=== PATIENT | male | born 1980 | race Two or more races ===

== ENCOUNTER 2018-01-03 23:00 | Emergency (ER) | payer OTHER ==
[~2018-01-03] VITALS: Ht 177.8 cm; Wt 104.3 kg
[~2018-01-03 23:00] MED LIST: ATIVAN1 MG ORAL; NKM
[2018-01-03] MEDS: Norco 5mg/325mg tab ORAL ONE (23:41)
--- NOTE | 2018-01-03 23:45 | Emergency Room Report ---
History of Present Illness General Chief Complaint: Lower Extremity Injury Source: Patient Present Illness HPI 37-year-old male presenting with left calf pain. 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 Complaining of pain. No ankle pain. Able to flex foot without issue. No other complaints Allergies: Coded Allergies: No Known Allergies (Unverified , 06/29/16) Patient History Past Medical History: see triage record Past Surgical History: none Pertinent Family History: none Reviewed Nursing Documentation: PMH: Agreed; PSxH: Agreed Nursing Documentation-PMH Past Medical History: No Stated History Review of Systems All Other Systems: negative except mentioned in HPI Physical Exam Vital Signs Date Time Temp Pulse Resp B/P (MAP) Pulse Ox O2 Delivery O2 Flow Rate FiO2 01/03/18 23:15 98.0 80 18 142/78 98 Room Air 98.1 Sp02 EP Interpretation: reviewed, normal General Appearance: alert, GCS 15, non-toxic, moderate distress Head: normocephalic, atraumatic Eyes: bilateral eye normal inspection, bilateral eye PERRL, bilateral eye EOMI ENT: normal ENT inspection, normal pharynx, normal voice, moist mucus membranes Neck: normal inspection, full range of motion, supple Respiratory: normal inspection, lungs clear, normal breath sounds, no respiratory distress, no wheezing, speaking full sentences, chest symmetrical Cardiovascular #1: normal inspection, regular rate, rhythm, normal capillary refill Cardiovascular #2: 2+ radial (R), 2+ radial (L) Gastrointestinal: normal inspection, non tender, soft, non-distended, no guarding Genitourinary: no CVA tenderness Musculoskeletal: other - Left lower leg, gastro-anemia's muscle, tense and tender to palpation, ecchymosis noted to the ankle, Garcia test is negative, patient with no Achilles rupture, no gross bony deformities. Distal pulses are intact Neurologic: normal inspection, alert, oriented x3, responsive, motor strength/ tone normal, sensory intact, normal gait, speech normal Psychiatric: normal inspection, judgement/insight normal, memory normal Skin: normal inspection, normal color, no rash, warm/dry, well hydrated, normal turgor Medical Decision Making Diagnostic Impression: Primary Impression: Gastrocnemius muscle tear ER Course 37-year-old male with left lower extremity pain, after hearing a pop last week DDX: The gastrocnemius tear, not involving Achilles tendon. Versus DVT Plan: Pain control and ultrasound ER course: Patient has remained stable during ED stay. Disposition: Patient is to be discharged to home. Told to get a compression sleeve and to follow up with orthopedic in one week, also told to ice Patient is instructed to follow up with their primary care doctor within 5 days. Please note that this Emergency Department Report was dictated using [employer] cashier technology software, occasionally this can lead to erroneous entry secondary to interpretation by the dictation equipment CT/MRI/US Diagnostic Results CT/MRI/US Diagnostic Results : Imaging Test Ordered: VENOUS DUPLEX Impression NEG Last Vital Signs Date Time Temp Pulse Resp B/P (MAP) Pulse Ox O2 Delivery O2 Flow Rate FiO2 01/03/18 23:15 98.0 80 18 142/78 98 Room Air 98.1 Disposition: HOME, SELF-CARE Condition: Improved Scripts Hydrocodone Bit/Acetaminophen 5-325* (NORCO 5-325*) 1 Each Tablet 1 TAB ORAL Q6H PRN for For Pain, #20 TAB 0 Refills Prov: Luis Fields M.D. 01/04/18 Patient Instructions: Muscle Strain, [id number] Luis Fields M.D. January 03, 2018 23:45
[2018-01-04] MEDS ORDERED: NORCO 5-325 TA1 EACH ORAL (00:41)
[2018-01-04 01:15] VITALS: BP 142/78
== END 2018-01-04 01:16 | disposition home or self-care (01) ==
LOC: EMR 23:35
DX: S86.812A Strain of other muscle(s) and tendon(s) at lower leg level, left leg, initial encounter (principal); Y93.02 Activity, running; Y92.9 Unspecified place or not applicable; R60.0 Localized edema
CPT/HCPCS: 93971; 99284

== ENCOUNTER 2018-10-06 07:46 | Emergency (ER) | payer OTHER ==
[~2018-10-06] VITALS: Ht 175.3 cm; Wt 104.3 kg
[~2018-10-06 07:46] MED LIST changes: +NORCO 5-325 TA1 EACH ORAL
[2018-10-06] MEDS ORDERED: Ketorolac 60mg Inj IM ONE (08:00)
[2018-10-06] MEDS ORDERED: Methocarbamol 750mg tab ORAL ONE (08:00)
[2018-10-06 08:02] VITALS: BP 137/91
[2018-10-06] MEDS ORDERED: ROBAXIN-750750 MG PO (08:07)
[2018-10-06] MEDS ORDERED: IBUPROFEN600 MG ORAL (08:07)
--- NOTE | 2018-10-06 08:10 | NUR ---
ED Nurse Note:pt. came with lower back pain no injury reported pain meds given
[2018-10-06 08:21] VITALS: BP 137/91
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
--- NOTE | 2018-10-06 08:23 | NUR ---
Ed Nurse Note: pt is cleared to be DC per ER provider, pt discharge and aftercare instruction provided w/ prescription, pt education done via discussion and handout, pt advised to follow up with pcp or return to ED if sx worsen or new sx develop, pt verbalized understanding and agrees with plan, pt vss, ambulatory w/ steady gait, all belongiongs left w/ pt, wristband removed.
== END 2018-10-06 08:30 | disposition home or self-care (01) ==
LOC: EMR 08:00
DX: M54.5 Low back pain (principal)
CPT/HCPCS: 96372; 99283

== ENCOUNTER 2019-02-27 21:47 | Emergency (ER) | payer OTHER ==
[~2019-02-27] VITALS: Ht 177.8 cm; Wt 104.3 kg
[~2019-02-27 21:47] MED LIST changes: +IBUPROFEN600 MG ORAL; +ROBAXIN-750750 MG PO
--- NOTE | 2019-02-27 22:00 | NUR ---
ED Nurse Note: Recieved pt from home with c/o swelling and severre 10/10 pain to left great toe x 2 days, pt states was [place] tight shoes at beach this weekend and "boil" formed, pt denies injury, no open wounds noted, very mild swelling, no redness, pt denies any other complaints or discomforts, pt ambulating well.
--- NOTE | 2019-02-27 22:44 | Emergency Room Report ---
History of Present Illness General Chief Complaint: Pain Source: Patient Present Illness HPI 38-year-old male presents with right toe pain, that started 4 days ago, he thinks he is having an ingrown hair, there is a boil on the top of his right great toe, he endorses a sharp pain aggravated with touch alleviated by rest, he denies any fevers or chills, patient presents for evaluation Allergies: Coded Allergies: No Known Allergies (Unverified , 06/29/16) Patient History Past Medical History: see triage record Reviewed Nursing Documentation: PMH: Agreed; PSxH: Agreed Nursing Documentation-PMH Past Medical History: No Stated History Review of Systems All Other Systems: negative except mentioned in HPI Physical Exam Vital Signs Date Time Temp Pulse Resp B/P (MAP) Pulse Ox O2 Delivery O2 Flow Rate FiO2 02/27/19 21:50 98.1 80 18 129/76 (93) 95 Room Air Sp02 EP Interpretation: reviewed, normal General Appearance: well appearing, no apparent distress, alert Head: normocephalic, atraumatic Eyes: bilateral eye PERRL, bilateral eye EOMI ENT: uvula midline, moist mucus membranes Neck: supple, thyroid normal, supple/symm/no masses Respiratory: lungs clear, no respiratory distress, no retraction, no accessory muscle use Cardiovascular #1: normal peripheral pulses, regular rate, rhythm, no edema, no gallop, no murmur Gastrointestinal: non tender, soft, no guarding, no rebound Musculoskeletal: other - Right great toe: A small 0.5 cm indurated lesion around where the hair grows Neurologic: alert, oriented x3 Psychiatric: mood/affect normal Skin: no rash, warm/dry Medical Decision Making Diagnostic Impression: Primary Impression: Folliculitis ER Course 38-year-old male presents with most likely folliculitis, patient does not want me to express the pus, patient wants to trial antibiotics, patient counseled, x- ray negative, on the differential includes cellulitis, abscess, folliculitis Precautions discussed Other X-Ray Diagnostic Results Other X-Ray Diagnostic Results : X-Ray ordered: Right Foot complete # of Views/Limited Vs Complete: 3 View Indication: Pain EP Interpretation: Yes Interpretation: no dislocation, no soft tissue swelling, no fractures, nonspecific bowel gas Impression: No acute disease Electronically Signed by: James Mccabe MD Last Vital Signs Date Time Temp Pulse Resp B/P (MAP) Pulse Ox O2 Delivery O2 Flow Rate FiO2 02/27/19 21:50 98.1 80 18 129/76 (93) 95 Room Air Disposition: HOME, SELF-CARE Condition: Stable Scripts Trimethoprim/Sulfamethoxazole 160/800* (BACTRIM DS TABLET*) 1 Each Tablet 1 TAB ORAL Q12H, #14 TAB 0 Refills Prov: James Mccabe MD 02/27/19 Referrals: [facility] Additional Instructions: The patient was provided with discharge instructions, notified to follow-up with a primary care doctor and or specialist in the next 24-48 hours, and to return to the ED if they have worsening of their symptoms. Please note that this report is being documented using [employer] technology. This can lead to erroneous entry secondary to incorrect interpretation by the dictating instrument. James Mccabe MD Feb 27, 2019 22:44
[2019-02-27] MEDS ORDERED: Bacitracin Oint UD TOPIC ONE (22:45)
[2019-02-27] MEDS ORDERED: BACTRIM DS TAB1 EAC1 ORAL (22:57)
[2019-02-27 23:10] VITALS: BP 136/84
[2019-02-27] MEDS ORDERED: Bactrim-DS 1 tab ORAL ONE (23:15)
[2019-02-27 23:25] VITALS: BP 136/84
--- NOTE | 2019-02-27 23:25 | NUR ---
ER DISCHARGE NOTE: Patient is cleared to be discharged per ERMD, pt is aox4, on room air, with stable vital signs. pt was given dc and prescription instructions, pt was able to verbalize understanding, pt id band removed without complications. pt is able to ambulate with steady gait. pt took all belongings.
--- NOTE | 2019-02-28 13:18 | Diagnostic Imaging Report ---
Indication: Foot Pain Comparison: None Findings: 3 views of the right foot were obtained. No acute fractures, malalignment, erosions or periostitis are identified. Impression: No acute findings.
== END 2019-02-28 02:06 | disposition home or self-care (01) ==
LOC: EMR 22:20
DX: L73.9 Follicular disorder, unspecified (principal)
CPT/HCPCS: 99283

== ENCOUNTER 2019-06-04 18:02 | Emergency (ER) | payer OTHER ==
[~2019-06-04] VITALS: Ht 177.8 cm; Wt 113.4 kg
[~2019-06-04 18:02] MED LIST changes: +BACTRIM DS TAB1 EAC1 ORAL
[2019-06-04 18:15] VITALS: BP 161/90
--- NOTE | 2019-06-04 18:15 | NUR ---
ED Nurse Note: pt walked in to Ed due to abscess on left thigh for 4 days. no discharge noted. redness noted with local fever. AAO x4. respirations even and non-labored noted. will wait for the further order.
--- NOTE | 2019-06-04 19:07 | NUR ---
HAND-OFF: Report given to MARTHA Herbert.
--- NOTE | 2019-06-04 19:09 | Emergency Room Report ---
History of Present Illness General Chief Complaint: Skin Rash/Abscess Source: Patient Present Illness HPI 38-year-old male with no significant past medical history here complaining of a 10 out of 10 pain over the abscess that has been developed on the left posterior thigh x3 days. 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 Patient reports that he has had abscess formation in the past and he has always been successfully able to drain it himself. Rating the pain 10 out of 10 without radiation, denies tingling and numbness. Denies fever and chills, chest pain, shortness of breath, palpitation, abdominal pain, nausea vomiting. Has not taken medication for symptom relief. Moderately erythematous abscess noted on left posterior thigh. Patient is up-to-date with tetanus shot. Allergies: Coded Allergies: No Known Allergies (Unverified , 06/29/16) Patient History Past Medical History: see triage record Past Surgical History: unable to obtain Pertinent Family History: none Immunizations: UTD Reviewed Nursing Documentation: PMH: Agreed; PSxH: Agreed Nursing Documentation-PMH Past Medical History: No Stated History Review of Systems All Other Systems: negative except mentioned in HPI Physical Exam Vital Signs Date Time Temp Pulse Resp B/P (MAP) Pulse Ox O2 Delivery O2 Flow Rate FiO2 06/04/19 18:12 98.2 99 18 161/90 (113) 98 Room Air Sp02 EP Interpretation: reviewed, normal General Appearance: no apparent distress, alert, GCS 15, non-toxic Head: normocephalic, atraumatic Eyes: bilateral eye normal inspection, bilateral eye PERRL ENT: hearing grossly normal, normal pharynx, no angioedema, normal voice Neck: full range of motion, supple, supple/symm/no masses Respiratory: chest non-tender, lungs clear, normal breath sounds, no rhonchi, no respiratory distress, no wheezing, speaking full sentences Cardiovascular #1: regular rate, rhythm, no edema, no murmur Gastrointestinal: normal bowel sounds, non tender, soft, non-distended, no guarding, no rebound Rectal: deferred Genitourinary: normal inspection, no CVA tenderness Musculoskeletal: back normal, digits/nails normal, gait/station normal, normal range of motion, non-tender, no calf tenderness Neurologic: normal inspection, alert, oriented x3 Psychiatric: judgement/insight normal, memory normal, mood/affect normal, no suicidal/homicidal ideation Skin: other - Abscess left posterior thigh Lymphatic: no adenopathy Procedures Incision and Drainage Incision and Drainage : Consent: Verbal Site: left posterior thigh Blade Size: 11 I & D Procedure: betadine prep Wound Location: lower extremity - left posterior thigh Wound's Depth, Shape: superficial Wound Length (cm): 1 Wound Explored: clean Anesthesia: Lidocaine w/ Epi Volume Anesthetic (ccs): 10 Splint Applied?: No Sling Applied?: No Patient Tolerated: Well Complications: None Medical Decision Making PA Attestation All diagnoses and treatment plans were reviewed and discussed with my supervising physician Dr. Wagner Diagnostic Impression: Primary Impression: Abscess of left thigh ER Course 38-year-old male with no significant past medical history here complaining of a 10 out of 10 pain over the abscess that has been developed on the left posterior thigh x3 days. 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 Patient reports that he has had abscess formation in the past and he has always been successfully able to drain it himself. Rating the pain 10 out of 10 without radiation, denies tingling and numbness. Denies fever and chills, chest pain, shortness of breath, palpitation, abdominal pain, nausea vomiting. Has not taken medication for symptom relief. Moderately erythematous abscess noted on left posterior thigh. Patient is up-to-date with tetanus shot. Ddx considered but are not limited to : Cellulitis, superficial infection, abscess Vital signs: are WNL, pt. is afebrile H&PE are most consistent with: Abscess of left posterior thigh ORDERS: Keflex, Bactrim, ibuprofen ED INTERVENTIONS: Incision and drainage, wound clean and dressed, Bactrim, Keflex, ibuprofen DISCHARGE: At this time pt. is stable for d/c to home. Will provide printed patient care instructions, and any necessary prescriptions. Care plan and follow up instructions have been discussed with the patient prior to discharge. Patient to follow-up with primary care provider or return to emergency room in 24 to 48 hours for wound check. If worsening symptoms, fever and chills return sooner. Last Vital Signs Date Time Temp Pulse Resp B/P (MAP) Pulse Ox O2 Delivery O2 Flow Rate FiO2 06/04/19 18:15 98.2 99 18 161/90 98 Room Air Disposition: HOME, SELF-CARE Condition: Stable Scripts Ibuprofen (Ibu) 800 Mg Tablet 800 MG PO TID, #21 TAB Prov: Yakov Hopkins 06/04/19 Cephalexin* (KEFLEX*) 500 Mg Capsule 500 MG ORAL EVERY 6 HOURS for 7 Days, #28 CAP Prov: Yakov Hopkins 06/04/19 Trimethoprim/Sulfamethoxazole 160/800* (BACTRIM DS TABLET*) 1 Each Tablet 1 TAB ORAL TWICE A DAY for 7 Days, #14 TAB Prov: Yakov Hopkins 06/04/19 Patient Instructions: Abscess Additional Instructions: Take medication as directed, follow-up with your primary care provider you need to have a wound check in 24 to 48 hours no more than welcome to return to the emergency room for wound check. If worsening symptoms such as fever and chills return to the emergency room sooner. Yakov Hopkins Jun 04, 2019 19:08
[2019-06-04] MEDS ORDERED: IBU800 MG PO (19:10)
[2019-06-04] MEDS ORDERED: BACTRIM DS TAB1 EAC1 ORAL (19:10)
[2019-06-04] MEDS ORDERED: CEPHALEXIN500 MG ORAL (19:10)
[2019-06-04] MEDS ORDERED: Cephalexin 500mg cap ORAL ONE (19:15)
[2019-06-04] MEDS ORDERED: Bactrim-DS 1 tab ORAL ONE (19:15)
[2019-06-04 19:28] VITALS: BP 161/90
--- NOTE | 2019-06-04 19:28 | NUR ---
ED Nurse Note: Pt cleared by ERMD for discharge. DC instructions/prescription was given and explained to pt and verbalized understanding of teachings. All medical deviecs such as ID band removed. Pt is AAO x4, ambulatory and left with all personal belongings.
== END 2019-06-04 19:28 | disposition home or self-care (01) ==
LOC: EMR 18:15
DX: L02.416 Cutaneous abscess of left lower limb (principal)
CPT/HCPCS: 10060; Z7502; 99283

== ENCOUNTER 2019-07-15 15:14 | Emergency (ER) | payer OTHER ==
[~2019-07-15] VITALS: Ht 177.8 cm; Wt 104.3 kg
[~2019-07-15 15:14] MED LIST changes: +CEPHALEXIN500 MG ORAL; +IBU800 MG PO
[2019-07-15] MEDS ORDERED: NKM (15:29)
--- NOTE | 2019-07-15 15:40 | NUR ---
ED Nurse Note: Patient walked into ED from home c/o left sided chest pain 1 hour prior to arrival to ED radiating to his lower back, reports tingling sensation and numbeness on the left hand. Patient denies N/V/changes in vision.
--- NOTE | 2019-07-15 15:53 | NUR ---
ED Nurse Note: xray at bedside
[2019-07-15] MEDS ORDERED: Aspirin Baby 81mg ORAL ONE (16:00)
--- NOTE | 2019-07-15 16:18 | NUR ---
ED Nurse Note: pt care assummed pt placed on telemetry and vs monitoring. pt amb steady gait without dyspnea or increased cp. pt denies cp at this time but does relate continued numbness/tingling sensation to fingers bilaterally. lungs cta. abd soft nt. denies n/v at this time. pt denies drug use but states does have recent etoh use.
[2019-07-15 16:23] VITALS: BP 147/86
[2019-07-15 16:23] LABS: BASOPHILS % (AUTO) 2.8 % (0.0-2.0); HEMATOCRIT 48.9 % (42.0-52.0); HEMOGLOBIN 16.4 G/DL (14.2-18.0); LYMPHOCYTES % (AUTO) 34.1 % (20.0-45.0); MEAN CORPUSCULAR VOLUME 81 FL (80-99); MONOCYTES % (AUTO) 6.1 % (1.0-10.0); PLATELET COUNT 262 K/UL (150-450); RED CELL DISTRIBUTION WIDTH 11.1 % (11.6-14.8); WHITE BLOOD COUNT 6.8 K/UL (4.8-10.8)
--- NOTE | 2019-07-15 16:29 | NUR ---
ED Nurse Note: pt relates no cp now but does have numbness/tingling sensation to left arm/fingers that has been present x 2 hours.
[2019-07-15 16:38] LABS: INR 0.9 (0.9-1.1)
[2019-07-15 16:39] LABS: ANION GAP 11 mmol/L (5-15); BLOOD UREA NITROGEN 15 mg/dL (7-18); CALCIUM 9.9 MG/DL (8.5-10.1); CARBON DIOXIDE 29 MMOL/L (21-32); CHLORIDE 102 MMOL/L (98-107); POTASSIUM 4.3 MMOL/L (3.5-5.1); SODIUM 142 MMOL/L (136-145)
[2019-07-15 16:49] LABS: ALANINE AMINOTRANSFERASE 52 U/L (12-78); ALBUMIN 4.3 G/DL (3.4-5.0); ALKALINE PHOSPHATASE 54 U/L (46-116); ASPARTATE AMINO TRANSFERASE 30 U/L (15-37); BILIRUBIN,TOTAL 0.4 MG/DL (0.2-1.0)
--- NOTE | 2019-07-15 17:16 | Diagnostic Imaging Report ---
Indication: Chest pain Technique: One view of the chest Comparison: none Findings: Lungs and pleural spaces are clear. Heart size is normal. No significant interim change Impression: No acute process
[2019-07-15] MEDS ORDERED: Omnipaue 350mg/ml 100ml vial INJ PRN (17:30)
--- NOTE | 2019-07-15 18:18 | Diagnostic Imaging Report ---
CLINICAL INDICATION:Left-sided chest pain, left arm numbness, suspected aortic dissection TECHNIQUE: IV administration nonionic contrast. Spiral acquisitions obtained through the chest, abdomen, and pelvis. Multiplanar and 3-D reconstructions were generated. Total dose length product 1513 mGycm. CTDIvol(s) 142 mGy. Radiation dose was minimized using automated exposure control COMPARISON: none FINDINGS Vascular: No evidence of thoracic aortic aneurysm or dissection demonstrated. Normal branching anatomy and caliber of the great neck vessels. No evidence of abdominal aortic aneurysm or dissection. Patent nonstenotic celiac axis and proximal branches, superior mesenteric artery and proximal branches, single bilateral renal arteries. Patent nonstenotic inferior mesenteric artery. A single small plaque is seen in the right common iliac artery; iliac arteries are otherwise patent without evidence of significant stenosis. Exam protocols not tailored for exclusion of pulmonary embolus, but the pulmonary arteries are well-opacified and there is no evidence of pulmonary embolus demonstrated. The heart demonstrates possible left ventricular wall thickening. Chest: There is some image degradation due to motion artifact. The lungs and pleural spaces are clear. No infiltrates, effusions, masses, or nodules are demonstrated. No pericardial effusion. No mediastinal or hilar mass or adenopathy. The included thyroid is unremarkable. No axillary or chest wall mass or adenopathy. The bones are unremarkable. Abdomen pelvis: The liver, gallbladder, bile ducts, pancreas, spleen, adrenals, kidneys are all unremarkable. No retroperitoneal or mesenteric mass or adenopathy. No pelvic mass or adenopathy. Slightly prominent prostate noted. The appendix is normal. No evidence of colonic diverticulosis or diverticulitis demonstrated. No small bowel distention. There is a small fat-containing umbilical hernia. No free or loculated intraperitoneal gas or fluid. The esophagus, stomach, duodenum are unremarkable. IMPRESSION: No evidence of thoracic or abdominal aortic aneurysm or dissection or any other acute pathology. Possible mild left ventricular muscular hypertrophy Slightly prominent prostate Incidental findings as noted This agrees with the preliminary interpretation provided overnight by [facility] service. The CT scanner at [facility] is accredited by the [employer] and the scans are performed using protocols designed to limit radiation exposure to as low as reasonably achievable to attain images of sufficient resolution adequate for diagnostic evaluation.
--- NOTE | 2019-07-15 18:40 | Emergency Room Report ---
History of Present Illness General Chief Complaint: Chest Pain Source: Patient Present Illness HPI 38-year-old male with no significant past medical history here complaining of sudden onset of chest pain, and numbness in the left arm. Denies headache and dizziness at this time, rating her pain 10 out of 10, intermittent, squeezing. Has not taken medication for symptom relief. Denies abdominal pain, nausea vomiting, history of tobacco smoke and drug use. Patient does report that he drinks alcohol on daily basis. Denies any history of hypertension or any other medical condition however reports that he usually does not follow-up with his primary care provider and has not had any blood work done in a few years. Reports that his father of brain aneurysm however patient denies any headache or dizziness at this time. Reports that he is very athletic and exercises on daily basis. Denies any calf swelling and tenderness. Denies tearing sensation in the chest this time. After giving aspirin and fluids patient reports that his chest pain has resolved however still feels numbness and no tingling in the left arm. denies anxiety. Denies recent travel, history of cancer, tobacco smoke Allergies: Coded Allergies: No Known Allergies (Unverified , 06/29/16) Patient History Past Medical History: see triage record Past Surgical History: unable to obtain Pertinent Family History: none Social History: Reports: alcohol use Immunizations: UTD Reviewed Nursing Documentation: PMH: Agreed; PSxH: Agreed Nursing Documentation-PMH Past Medical History: No Stated History Review of Systems All Other Systems: negative except mentioned in HPI Physical Exam Vital Signs Date Time Temp Pulse Resp B/P (MAP) Pulse Ox O2 Delivery O2 Flow Rate FiO2 07/15/19 15:24 98.4 76 17 152/92 (112) 99 Room Air Sp02 EP Interpretation: reviewed, abnormal - high BP General Appearance: no apparent distress, alert, GCS 15, non-toxic Head: normocephalic, atraumatic Eyes: bilateral eye normal inspection, bilateral eye PERRL ENT: hearing grossly normal, normal pharynx, no angioedema, normal voice Neck: full range of motion, supple, thyroid normal, no meningismus, no bony tend, supple/symm/no masses Respiratory: chest non-tender, lungs clear, normal breath sounds, no rhonchi, no respiratory distress, no retraction, no wheezing, speaking full sentences Cardiovascular #1: regular rate, rhythm, no edema, no gallop, no JVD, no murmur , normal capillary refill Cardiovascular #2: 2+ carotid (R), 2+ carotid (L), 2+ radial (R), 2+ radial (L) , 2+ dorsalis pedis (R), 2+ dorsalis pedis (L) Gastrointestinal: normal bowel sounds, non tender, soft, non-distended, no guarding, no rebound Rectal: deferred Genitourinary: no CVA tenderness Musculoskeletal: back normal, normal range of motion, no calf tenderness, gait/ station normal, non-tender Neurologic: alert, motor strength/tone normal, oriented x3, sensory intact, responsive, speech normal Psychiatric: judgement/insight normal, memory normal, mood/affect normal, no suicidal/homicidal ideation Skin: no rash Lymphatic: no adenopathy Medical Decision Making PA Attestation All diagnoses and treatment plans were reviewed and discussed with my supervising physician Dr. Garcia Diagnostic Impression: Primary Impression: Chest pain, unspecified Additional Impression: Muscle strain ER Course 38-year-old male with no significant past medical history here complaining of sudden onset of chest pain, and numbness in the left arm. Denies headache and dizziness at this time, rating her pain 10 out of 10, intermittent, squeezing. Has not taken medication for symptom relief. Denies abdominal pain, nausea vomiting, history of tobacco smoke and drug use. Patient does report that he drinks alcohol on daily basis. Denies any history of hypertension or any other medical condition however reports that he usually does not follow-up with his primary care provider and has not had any blood work done in a few years. Reports that his father of brain aneurysm however patient denies any headache or dizziness at this time. Reports that he is very athletic and exercises on daily basis. Denies any calf swelling and tenderness. Denies tearing sensation in the chest this time. After giving aspirin and fluids patient reports that his chest pain has resolved however still feels numbness and no tingling in the left arm. denies anxiety. Denies recent travel, history of cancer, tobacco smoke Ddx considered but are not limited to: AL, Angina, COPD, GERD, aortic dissection , PE Vital signs: are WNL, pt. is afebrile H&PE are most consistent with unspecified chest pain, muscle strain ORDERS: EKG, Chest XR, cardiac labs, CTA, Robaxin, Motrin, lidocaine patch ED INTERVENTIONS: NS bolus. Aspirin DISCHARGE: At this time pt. is stable for d/c to home. Will provide printed patient care instructions, and any necessary prescriptions. Care plan and follow up instructions have been discussed with the patient prior to discharge. Patient to follow-up with primary care provider, and verification lead, at this time no acute causes of his chest pain has been found. Return to the emergency room if worsening symptoms. Advised patient to avoid alcohol intake EKG Diagnostic Results Rate: normal Rhythm: NSR ST Segments: no acute changes Other Impression No acute ST changes Chest X-Ray Diagnostic Results Chest X-Ray Diagnostic Results : Chest X-Ray Ordered: Yes # of Views/Limited/Complete: 1 View Indication: Chest Pain EP Interpretation: Yes ISIDORO Xray: Interpretation reviewed, by supervising MD, and agrees with findings. Interpretation: no consolidation, no effusion, no pneumothorax, no acute cardiopulmonary disease Impression: No acute disease Electronically Signed by: Yakov Flores PA-C Last Vital Signs Date Time Temp Pulse Resp B/P (MAP) Pulse Ox O2 Delivery O2 Flow Rate FiO2 07/15/19 16:23 66 20 Room Air 07/15/19 16:23 147/86 98 07/15/19 15:24 98.4 Disposition: HOME, SELF-CARE Condition: Stable Scripts Lidocaine Patch* (Lidoderm Patch*) 1 Each Adh..patch 1 PATCH TOPIC DAILY, #7 PATCH 0 Refills Patch(es) may remain in place for up to 12 hours in any 24-hour period. Prov: Yakov Hopkins 07/15/19 Ibuprofen* (MOTRIN*) 600 Mg Tablet 600 MG ORAL Q8H PRN for For Pain, #30 TAB 0 Refills Prov: Yakov Hopkins 07/15/19 Methocarbamol* (ROBAXIN-500*) 500 Mg Tablet 500 MG ORAL TID PRN for For Pain, #15 TAB 0 Refills Prov: Yakov Hopkins 07/15/19 Referrals: [facility],REFERRING (PCP) Patient Instructions: Muscle Strain, [id number], Nonspecific Chest Pain Additional Instructions: Take medication as directed, follow-up with your primary care provider for referral to verification lead regarding your chest pain, avoid strenuous physical activity. If worsening symptoms return to the emergency room. Yakov Hopkins Jul 15, 2019 18:39
[2019-07-15] MEDS ORDERED: LIDODERM700 M1 TOPIC (18:41)
[2019-07-15] MEDS ORDERED: ROBAXIN-500MG ORAL (18:41)
[2019-07-15] MEDS ORDERED: IBUPROFEN600 MG ORAL (18:41)
[2019-07-15 19:00] VITALS: BP 131/87
--- NOTE | 2019-07-15 19:00 | NUR ---
ER DISCHARGE NOTE: Patient is cleared to be discharged per ERMD Dr. Garcia, pt is aox4, on room air, with stable vital signs. pt was given dc and prescription instructions, pt was able to verbalize understanding, pt id band and iv site removed without complications. pt is able to ambulate with steady gait. pt took all belongings.
--- NOTE | 2019-07-19 15:42 | Cardiology Report ---
APPROVED REPORT EKG Measurement Heart [id number] Normal sinus rhythm with sinus arrhythmia Normal ECG
== END 2019-07-15 19:00 | disposition home or self-care (01) ==
LOC: EMR 17:50
DX: R07.9 Chest pain, unspecified (principal); T14.8XXA Other injury of unspecified body region, initial encounter; X58.XXXA Exposure to other specified factors, initial encounter; Y92.9 Unspecified place or not applicable; R20.2 Paresthesia of skin
CPT/HCPCS: 36415; 71045; 71275; 74174; 80053; 83690; 83880; 84484; 85025; 85610; 85730; 86850; 86900; 86901; 93005; 96360; G0480; J7030; Q9967; Z7502; 99284